=== PATIENT | male | born 1970 | race Caucasian/White ===

== ENCOUNTER 2018-06-20 09:25 | Emergency (ER) | payer OTHER ==
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
[2018-06-20] MEDS ORDERED: LET GEL TOPICAL 1 EA SYR TP ONE (09:47)
[2018-06-20 11:06] VITALS: BP 123/71
== END 2018-06-20 11:15 | disposition home or self-care (01) ==
PROC: 2W29X4Z Dressing of Left Upper Extremity using Bandage (ICD-10-PCS; principal; 2018-06-20)
DX: T22.212A Burn of second degree of left forearm, initial encounter (principal); X10.2XXA Contact with fats and cooking oils, initial encounter; Y93.G3 Activity, cooking and baking; Z87.891 Personal history of nicotine dependence